=== PATIENT | female | born 1985 | race Caucasian/White ===

== ENCOUNTER 2016-07-11 05:59 | Day surgery (SDC) | payer MEDICARE, BC ==
[~2016-07-11] VITALS: Ht 170.2 cm; Wt 62.7 kg
[2016-07-11 07:01] VITALS: Ht 170.2 cm; Wt 62.7 kg
[2016-07-11] MEDS ORDERED: PROPOFOL 40 ML ONE (07:40)
[2016-07-11 07:55] VITALS: BP 146/90; PULSE 78; RESP 16
[2016-07-11] MEDS ORDERED: ATROPINE 1 MG/10 ML SYRINGE ONE (08:08)
[2016-07-11 08:45] VITALS: BP 116/81; RESP 20
--- NOTE | 2016-07-11 10:35 | GILP ---
DATE OF PROCEDURE: 07/11/2016 NAME OF PROCEDURES: 1. Esophagogastroduodenoscopy and biopsy. 2. Colonoscopy and biopsy. SURGEON: Janee Santana MD PREOPERATIVE DIAGNOSIS: Abdominal pain, chronic diarrhea. POSTOPERATIVE DIAGNOSES: 1. Gastritis with erosions. 2. Gastric mucosal biopsies were taken for Helicobacter pylori test. 3. Small bowel biopsies were taken to rule out celiac disease. 4. Colonoscopy all the way to the cecum. 5. Normal terminal ileum. 6. Internal hemorrhoids. 7. Random biopsies were taken to rule out microscopic colitis. INDICATION FOR THE PROCEDURE: Ms. Tammy Hutton is a 30-year-old female patient who had upper abdom inal pain, not responding to therapy. The patient also had chronic diarrhea and rectal bleeding. T he patient was scheduled for endoscopy and colonoscopy for further evaluation. The procedures and possible complications were well explained to the patient. The patient understoo d and consented to the procedures. DESCRIPTION OF PROCEDURE: Under the influence of anesthesia, the gastroscope was carefully introduc ed into the esophagus and under direct vision, it was advanced to the stomach and through the pyloru s into the duodenal bulb and descending duodenum. FINDINGS: ESOPHAGUS: The mucosa was normal. STOMACH: The patient had gastritis and gastric mucosal biopsies were taken for H. pylori test. DUODENUM: Normal. Small bowel biopsies were taken to rule out celiac disease. The colonoscope was carefully introduced in the rectum and under direct vision, it was advanced all the way to the cecum and through the ileocecal valve into the terminal ileum. FINDINGS: The terminal ileum was normal. The colonic mucosa was normal. Random biopsies were take n to rule out microscopic colitis. The patient was noted to have internal hemorrhoids. She tolerated the procedures very well and there was no complication from the procedures. At the en d of the procedures, she was awake with stable vital signs and she was discharged home to the care o f her family. IMPRESSION: 1. Gastritis. 2. Gastric mucosal biopsies were taken for Helicobacter pylori test. 3. Small bowel biopsies were taken to rule out celiac disease. 4. Colonoscopy all the way to the cecum and into the terminal ileum. 5. Normal terminal ileum. 6. Random biopsies were taken to rule out microscopic colitis. 7. Internal hemorrhoids. PLAN 1. Omeprazole 40 mg p.o. q.a.m. 2. Bentyl 10 mg p.o. t.i.d. p.r.n. for abdominal pain or diarrhea. 3. Await histopathology reports. Dictated By: JANEE PEREZ/ELOISE Conf#: [id number] DID#: [id number] CC: JANEE SANTANA MD;*[facility]*
--- NOTE | 2016-07-12 08:47 | CONS ---
DATE OF ADMISSION: 07/11/2016 DATE OF CONSULTATION: I thank you very much for this kind referral. HISTORY OF PRESENT ILLNESS: Ms. Tammy Ovalle is a 30-year-old female patient who has been referred to me for further evaluation of abdominal pain and chronic diarrhea. The patient states she has go t epigastric pain, which is not responding to symptomatic medical therapy. There is no past history of peptic ulcer disease. Her appetite has been somewhat poor, and she states that she has been los ing weight. Patient also complains of change in the bowel habit with chronic diarrhea. She has a h istory of rectal bleeding. There is no past history of inflammatory bowel disease. There is no his tory of gallstones. She does not have any fever, chills or jaundice. There is no history of liver disease. She is not a hypertensive or diabetic. She does not have any heart disease or lung proble m. There is no history of kidney disease. The patient recently had a stroke and she has got left h emiparesis. The patient states she had abdominal CT scan done and it was normal. SOCIAL HISTORY: She is a nonsmoker. She does not abuse alcohol. FAMILY HISTORY: Negative for gastrointestinal tract neoplasm. ALLERGIES: THERE IS NO HISTORY OF SIGNIFICANT DRUG ALLERGY. MEDICATIONS: None. PHYSICAL EXAMINATION: VITAL SIGNS: She is 5 feet 7 inches tall and she weighs 140 pounds. BMI 22, blood pressure 150/90. HEART: Examination of the heart reveals normal first and second heart sounds. LUNGS: Clear. ABDOMEN: Soft without any distention. Liver and spleen are not palpable. There are no masses. Th ere is no focal tenderness. Normal bowel sounds are heard. CENTRAL NERVOUS SYSTEM: Reveals evidence of left hemiparesis. IMPRESSION: 1. Upper abdominal pain associated with weight loss. 2. Chronic diarrhea. 3. History of rectal bleeding. 4. Status post stroke with left hemiparesis. PLAN: 1. Would obtain abdominal CT scan report from primary MD. 2. Follow up with the primary MD for the management of borderline hypertension. 3. Endoscopy and colonoscopy for further evaluation. 4. Because of the history of stroke, the patient will need monitored anesthesia care for the proced ure. The procedure and possible complications were well explained to the patient. She understands and co nsents to the procedure. I thank you once again. With warmest personal regards, Dictated By: JANEE PEREZ/NTS Conf#: [id number] DID#: [id number] CC: JANEE SANTANA MD;*[facility]*
== END 2016-07-11 18:00 | disposition home or self-care (01) ==
LOC: GIL 05:59
PROVIDERS: ATTEND Internal Medicine Gastroenterology
DX: Z12.11 Encounter for screening for malignant neoplasm of colon (principal); K29.60 Other gastritis without bleeding; K64.8 Other hemorrhoids; Z86.73 Personal history of transient ischemic attack (TIA), and cerebral infarction without residual deficits
CPT/HCPCS: 43239; 87081; 88305; G0121; J0461